=== PATIENT | female | born 1995 | race African-American/Black ===

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

== ENCOUNTER 2017-05-21 17:19 | Emergency (ER) | payer OTHER | END 2017-05-21 20:45 | disposition home or self-care (01) | LOC: M ED 17:19 | DX: S06.0X0A Concussion without loss of consciousness, initial encounter (principal); W00.0XXA Fall on same level due to ice and snow, initial encounter; Y92.830 Public park as the place of occurrence of the external cause; Y93.01 Activity, walking, marching and hiking | CPT/HCPCS: 70450 ==